=== PATIENT | female | born 2005 | race Hispanic/Latino ===

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

== ENCOUNTER 2024-12-04 09:54 | Emergency (ER) | payer SELFPAY ==
[~2024-12-04 09:54] MED LIST: CEFD250S3 PO
[2024-12-04] MEDS ORDERED: AMOX1TAB16 PO (10:37)
--- NOTE | 2024-12-04 10:38 | ERN ---
ED Note History of Present Illness Stated Complaint: TOOTH PAIN Chief Complaint: Tooth Ache/Pain Time Seen by MD: 10:13 Time Seen by Midlevel: 10:15 Dictation: 19 Year old female coming in with complaints of tooth pain that started months ago however worsening since yesterday. Patient states she went to [facility] and gave her an antibiotic, clindamycin, it is now complaining of pain. Denies having any fevers nausea or vomiting. Allergies: Coded Allergies: No Known Allergies (Unverified Allergy, Unknown, 06/09/22) Home Meds Active Scripts Cefdinir (Cefdinir) 250 Mg/5 Ml Susp.recon, 250 MG PO BID for UTI for 7 Days, #70 / Prov:REGI DANIEL DNP 06/09/22 Past Medical History Past Medical History: No Pertinent History Surgical History: None Review of System Dictation Constitutional: Negative for fever,chills, and weight loss Eyes: Negative for injury, pain,redness, and discharge ENT: Complaining of tooth pain Cardiovascular: Negative for chest pain, palpitations, and edema Respiratory: Negative for shortness of breath, cough, and wheezing, Abdomen/GI: Negative for abdominal pain, nausea, vomiting, diarrhea, and cons tipation Back: Negative for injury and pain : Negative for injury, bleeding and discharge MS/Extremity: Negative for injury and deformity Skin: Negative for rash, and discoloration Neuro: Negative for headache, weakness, numbness, tingling, and seizure Psych: Negative for suicide ideation, homicidal ideation, and hallucinations Review of Systems: was completed Physical Exam Dictation General: awake, alert, NAD Head/Face: Normocephalic, atraumatic Eyes: PERRL, EOMI, vision at baseline ENT: oral cavity clear, TMs clear, left upper molar DKA noted. No evidence of any abscess or facial cellulitis Neck: Trachea midline, supple, no nuchal rigidity Cardiovascular: RRR, normal S1/S2, No MRGs, no JVD Respiratory: CTAB, no respiratory distress, No rales or wheezes Abdomen: Soft, non-tender, non-distended, normal bowel sounds, no guarding or rebound. Skin: Warm, dry, normal turgor, no rash MS/Extremity: Pulses equal, no cyanosis, neurovascular intact, FROM Neuro: COAx4, GCS 15, strength 5/5, CN 2-12 intact, normal cerebellar exam, normal gait, Psych: Normal behavior, mood, and affect normal ED Course ED Course Orders Procedure Category Date Status Time Ketorolac PHA 12/04/24 Logged Tromethamine 15mg/Ml 10:31 Current Medications Medications (Trade) Dose Ordered Sig/Ramón Route PRN Reason Start Time Stop Time Status Last Admin Dose Admin Ketorolac Tromethamine (toRADol) 15 mg ONCE STAT IM 12/04/24 10:31 12/04/24 10:32 Medical Decision Making MDM MDM: 19 Year old female coming in with complaints of tooth pain that started months ago however worsening since yesterday. Patient states she went to [facility] and gave her an antibiotic, clindamycin, it is now complaining of pain. Denies having any fevers nausea or vomiting. We will change patient's clindamycin to Augmentin and have patient complete the dose before following up with a dentist outpatient. Educated patient on signs and symptoms of when to return back to the ER. Patient verbalized understanding, answered all questions. Differential diagnosis: Dental office, dental caries, patient is cellulitis Rationale: Tests considered and ordered secondary to shared decision making include: Previous outside records reviewed: Old ER visits. Risk of complication and/or morbidity or mortality of patient management: None Medications-Per medication reconciliation Need for hospitalization: Patient does not meet criteria for hospitalization. Need for emergency major/minor surgery: No There are no social concerns with this patient. Prescription drug management Prescriptions will include symptomatic care Patient's prior external medical records from other ER visits were reviewed by me as indicated. Prior testing and results from previous visits were reviewed. Prior tests were taken into account with medical decision making and resource utilization, independent historian/historians were used to obtain complete medical history. I independently interpreted the test that were performed, results were reviewed by me and considered findings on radiology if ordered. Medical management and examination interpretation discussions were had by me with other qualified healthcare professionals as indicated for the patient's care. DX & DISP Disposition: Discharge Departure Impression: Primary Impression: Tooth infection Condition: Stable Scripts Amoxicillin/Potassium Clav (Amox Tr-K Clv 875-125 mg Tab) 875 Mg-125 Mg Tablet 1 EACH PO BID for 5 Days, #10 TAB 0 Refills Prov: CHARLOTTE HUERTA NP 12/04/24 Additional Instructions: Strict completing the antibiotic dose follow up with a dentist. Return to the hospital if he had any worsening symptoms. Referrals: SELF,REFERRAL (PCP) Time of Disposition: 10:37 I have reviewed the case, and I agree with, Diagnosis and Plan CHARLOTTE HUERTA NP Dec 04, 2024 10:38
--- NOTE | 2024-12-04 11:07 | NUR ---
PT AAOX3 STABLE NO DISTRESS VITAL WNL PT MEDICATED PRIOR TO D/C PT STATES PAIN IS GOING DOWN NOW, NOT BAD WHEN SHE CAME IN, THE SHOT HELPED FOR PAIN, PT HAD NO IV AT THIS TIME. PT GIVEN RX AND INSTRUCTION FOR HOME DRIVEN HOME BY GIRLFRIEND.
== END 2024-12-04 11:09 | disposition home or self-care (01) ==
LOC: EDH 09:54
DX: K04.7 Periapical abscess without sinus (principal); Z79.899 Other long term (current) drug therapy
CPT/HCPCS: 99283; 96372; J1885